=== PATIENT | male | born 1965 | race African-American/Black ===

== ENCOUNTER 2017-03-20 20:37 | Emergency (ER) | payer SELFPAY ==
[~2017-03-20] VITALS: Ht 172.7 cm; Wt 74.4 kg
[2017-03-20] MEDS ORDERED: NKM (20:58)
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
[2017-03-20] MEDS ORDERED: CYCLOBENZAPRINE10 MG ORAL (22:24)
[2017-03-20 22:32] VITALS: BP 116/70
--- NOTE | 2017-03-21 09:13 | Diagnostic Imaging Report ---
Indication: PAIN Technique: Spiral acquisitions obtained through the cervical spine. No IV contrast utilized. Multiplanar reconstructions were generated. Total dose length product 435 mGycm. CTDIvol(s) 20 mGy. Dose reduction achieved using automated exposure control Comparison: None Findings: No acute fractures or dislocations. Bony alignment is normal. Vertebral body heights are preserved. No prevertebral soft tissue swelling. Are mild degenerative changes of the anterior atlantoaxial joint. At C2-3, there is broad-based posterior disc protrusion centrally, which does not significantly compromise the spinal canal. There is mild right, moderate to severe left neural foraminal stenosis, due to facet and facet hypertrophy. The disc space is minimally narrowed. At C3-4, there is mild narrowing of the disc. There is circumferential annular bulge. This and posterior osteophytes result in mild narrowing of the spinal canal. There is severe right neural frontal stenosis, near complete obliteration of the left neural foramen due to uncinate and facet hypertrophy. At C4-5, the disc space is preserved. There is broad-based central posterior disc protrusion and posterior osteophytes as well as some ossification of the posterior longitudinal ligament. This results in mild narrowing of the spinal canal. There is moderate to severe right, severe left neural foraminal stenosis. At C5-6, the disc space is preserved. No significant disc bulge or protrusion or spinal stenosis. There is mild right neural foraminal stenosis. At C6-7, there is mild left neural foraminal stenosis due to facet and uncinate hypertrophy. No significant disc bulge or protrusion or spinal stenosis. At C7-T1, no significant disc bulge or protrusion, spinal stenosis, or neural foraminal stenosis. The included extraspinal soft tissues are unremarkable. Impression: No acute bony trauma Degenerative changes, as detailed a level by level basis above This agrees with the preliminary interpretation provided overnight by [facility] teleradiology service. The CT scanner at [facility] is accredited by the [employer] and the scans are performed using protocols designed to limit radiation exposure to as low as reasonably achievable to attain images of sufficient resolution adequate for diagnostic evaluation.
--- NOTE | 2017-03-21 11:05 | Diagnostic Imaging Report ---
Indication: PAIN Technique: 4 views of the lumbar spine Comparison: None Findings: Vertebral body heights are preserved. The disc spaces are preserved. There are degenerative proliferative changes. There is mild facet degeneration at L5-S1 bilaterally. There is mild dextro scoliotic deformity, which could be an artifact of positioning. The pedicles are intact. Sacral arches are preserved. The sacroiliac joint spaces are preserved Impression: Degenerative changes, as described No acute bony trauma
== END 2017-03-21 03:59 | disposition home or self-care (01) ==
LOC: EMR 22:09
DX: S16.1XXA Strain of muscle, fascia and tendon at neck level, initial encounter (principal); S39.012A Strain of muscle, fascia and tendon of lower back, initial encounter; V43.52XA Car driver injured in collision with other type car in traffic accident, initial encounter; Y92.410 Unspecified street and highway as the place of occurrence of the external cause; Z88.0 Allergy status to penicillin
CPT/HCPCS: 72110; 72125; 99284